=== PATIENT | female | born 1995 | race African-American/Black ===

== ENCOUNTER 2016-12-29 05:12 | Emergency (ER) | payer SELFPAY ==
[~2016-12-29] VITALS: Ht 170.2 cm; Wt 172.4 kg
[~2016-12-29 05:12] MED LIST: CIPR500T4 PO; ERYT1OIN6 OP; [UNRECOGNIZED DRUG - OTHER]
--- NOTE | 2016-12-29 05:37 | ED Back Pain ---
General Chief Complaint: Back Problems Stated Complaint: BACK PAIN Source of Information: Patient, Family Exam Limitations: No Limitations History of Present Illness Time Seen by Provider: 05:25 Initial Comments Patient presents to ER with her sister with chief complaint of 3-4 weeks progressively worsening back pain especially after she started her job at [employer] approximately a couple weeks ago. She states the pain is worse at the end of the day and she oftentimes goes home goes asleep and sleeps the whole day and wakes up still having pain in her back. She has no incontinence of bowel or bladder, saddle anesthesia, numbness tingling, radiation, weakness, falls, history of injury or trauma. She has used 400 mg of ibuprofen once sometimes twice a day marginal benefit. She has not seen her primary care physician about this yet. Allergies and Home Medications Allergies Coded Allergies: Penicillins (Verified Allergy, 08/12/11) Home Medications Ciprofloxacin HCl 500 Mg Tablet, 500 MG PO BID, #20 Ref 0 Prescribed by: SAMEERA SMITH on 10/15/15 1305 Cyclobenzaprine HCl 10 Mg Tablet, 10 MG PO BID PRN for SPASMS, #15 Ref 0 Prescribed by: EMELY WYLIE on 12/29/16 0538 Erythromycin Base 1 Gm Oint...g., 0 OP Q4H, #1 Ref 0 1/2 inch Prescribed by: SAMEERA SMITH on 10/15/15 1305 Constitutional: see HPI, No chills, No diaphoresis, No dizziness, No fever, No malaise Respiratory: No cough, No short of breath Cardiovascular: No chest pain, No syncope Gastrointestinal: No constipation, No diarrhea, No nausea, No vomiting Genitourinary: No discharge, No dysuria, No frequency Musculoskeletal: see HPI, back pain, No joint pain, muscle pain, muscle stiffness Skin: No pruritus, No rash Psychiatric/Neurological: Denies Headache, Denies Numbness, Denies Paresthesia , Denies Weakness Past Tsjdgeu-Tobjvb-Tzwomc Hx Patient Social History Alcohol Use: Denies Use Recreational Drug Use: No Smoking Status: Never a Smoker Recent Foreign Travel: No Contact w/Someone Who Travel: No Seasonal Allergies Seasonal Allergies: Yes Surgeries HX Surgeries: No Respiratory Hx Respiratory Disorders: No Cardiovascular Hx Cardiac Disorders: No Neurological Hx Neurological Disorders: No Gastrointestinal Hx Gastrointestinal Disorders: No HEENT HX ENT Disorders: No Family Medical History Significant Family History: No Pertinent Family Hx Physical Exam Vital Signs Vital Sign - Last 12Hours 12/29/16 05:26 Temp 97.4 Pulse 76 Resp 18 B/P (MAP) 122/98 Pulse Ox 100 Capillary Refill : General Appearance: No Apparent Distress, WD/WN HEENT: PERRL/EOMI, Pharynx Normal Neck: Full Range of Motion, Normal Inspection, Supple Cardiovascular: Regular Rate, Rhythm, No Edema Respiratory: Lungs Clear, Normal Breath Sounds Gastrointestinal: Non Tender, Soft Back: Normal Inspection, No Vertebral Tenderness Extremity: Normal Capillary Refill, No Pedal Edema Neurologic/Psychiatric: Alert, Oriented x3, No Motor/Sensory Deficits, No Abnormal Gait Skin: Normal Color, Warm/Dry Progress/Results/Core Measures Results/Orders Vital Signs/I&O Vital Sign - Last 12Hours 12/29/16 05:26 Temp 97.4 Pulse 76 Resp 18 B/P (MAP) 122/98 Pulse Ox 100 Departure Impression Impression: Primary Impression: Back pain Qualified Codes: M54.5 - Low back pain Disposition: 01 HOME, SELF-CARE Condition: Stable Departure-Patient Inst. Decision time for Depature: 05:33 [facility] Primary Care Physician Patient Instructions: Low Back Pain (DC) Add. Discharge Instructions: When possible try and rest your back. Wear the back brace on any days that it helps. Apply heat directly over the part of your back that hurts and if you do not have heat you can use creams such as icy hot or Aspercreme or Biofreeze. Looked up some exercises on strengthening your core such as sit ups, crutches, planks, pushups and start doing these with a goal of getting up to 30 minutes a day 5 days a week eventually. A weight loss of vision 5-10% of your body weight well resulted in dramatic improvement in your low back pain. Your pain should start getting better in 6-8 weeks. If you're having pain you should take ibuprofen 800 mg 3 times a day and Tylenol 1000 mg every 8 hours as needed. If this does not help and your pain is continuing to get worse or starts having new or worsening symptoms you should present to your primary care physician at [facility] as you may require extra help such as physical therapy that they can make referral to. You should return to the ER if you develops a high fever, incontinence, nausea or inability to walk. Twice a day you can use Flexeril one tablet by mouth if you're having back muscle spasms. Be cautious as this medicine will make you drowsy. All discharge instructions reviewed with patient and/or family. Voiced understanding. Scripts Cyclobenzaprine HCl (Cyclobenzaprine HCl) 10 Mg Tablet 10 MG PO BID Y for SPASMS, #15 TAB 0 Refills Prov: EMELY WYLIE 12/29/16 Copy Copies To 1: JUAN C GOMEZ TITUS J Dec 29, 2016 05:36
[2016-12-29] MEDS ORDERED: CYCL10TA9 PO (05:38)
[2016-12-29 05:41] VITALS: BP 122/98
== END 2016-12-29 05:41 | disposition home or self-care (01) ==
LOC: EDUNIT# 05:12 → ER 05:18
DX: M54.9 Dorsalgia, unspecified (principal)
CPT/HCPCS: 99281

== ENCOUNTER 2017-11-01 05:03 | Emergency (ER) | payer SELFPAY ==
[~2017-11-01] VITALS: Ht 170.2 cm; Wt 136.1 kg
[~2017-11-01 05:03] MED LIST changes: +CYCL10TA9 PO
[2017-11-01] MEDS ORDERED: KETOROLAC 30 MG/ML VIAL IVP ONE (05:15)
[2017-11-01] MEDS ORDERED: ONDANSETRON 4 MG/2 ML (SDV) Z0FRAN IVP ONE (05:15)
[2017-11-01] MEDS ORDERED: LACTATED RINGERS 1,000 ML IV ONE (05:15)
[2017-11-01 05:28] LABS: BASOPHILS % (AUTO) 0 % (0-10); EOSINOPHILS # (AUTO) 0.2 10^3/uL (0.0-0.3); EOSINOPHILS % (AUTO) 1 % (0-10); HEMATOCRIT 34 % (35-52); HEMOGLOBIN 11.6 G/DL (11.5-16.0); LYMPHOCYTES # (AUTO) 3.2 X 10^3 (1.0-4.0); LYMPHOCYTES % (AUTO) 22 % (12-44); MEAN CORPUSCULAR HEMOGLOBIN 29 PG (25-34); MEAN CORPUSCULAR HGB CONC 34 G/DL (32-36); MEAN CORPUSCULAR VOLUME 85 FL (80-99); MEAN PLATELET VOLUME 11.1 FL (7.4-10.4); MONOCYTES # (AUTO) 1.1 X 10^3 (0.0-1.0); MONOCYTES % (AUTO) 8 % (0-12); NEUTROPHILS # (AUTO) 9.9 X 10^3 (1.8-7.8); NEUTROPHILS % (AUTO) 69 % (42-75); PLATELET COUNT 252 10^3/uL (130-400); RED BLOOD COUNT 4.05 10^6/uL (4.35-5.85); RED CELL DISTRIBUTION WIDTH 12.8 % (10.0-14.5); WHITE BLOOD COUNT 14.5 10^3/uL (4.3-11.0)
--- NOTE | 2017-11-01 05:29 | ED Abdominal Pain ---
General Chief Complaint: Abdominal/GI Problems Stated Complaint: AB PAIN W VOMITING Source of Information: Patient, Family (sister) Exam Limitations: No Limitations (EMELY WYLIE) History of Present Illness Date Seen by Provider: Nov 01, 2017 Time Seen by Provider: 05:12 Initial Comments Patient presents to the ER by private conveyance with her sister sister and a chief complaint that she woke her sister up because she has been having nausea and vomiting tonight. She is having abdominal pain in the epigastric region that sharp and does not radiate anywhere. Her sister says that they ate a meal of chicken and broccoli and cheese with rice about 8 or 9:00 and then 2 hours later the patient was having abdominal pain and nausea and vomiting. She's had no fevers or chills but she is having some sweats. Her sister says she gets these bouts in the last for a day or 2 about every month or so for the past 10- 11 years. Sister used to think that they are associated with the patient's periods but they do not think that anymore. Patient does not drink or smoke but used MJ yesterday. Patient uses blood pressure medicines but nothing else. She does not use control. She has never had pancreatitis that she knows of. She still has her gallbladder intact and his never had this worked up outpatient. She says she does not have a primary care doctor but she does follow at [facility]. Mom says whenever this happens of a goes on for more than a few days they will come to the ER and get some medicines to make it feel better and it'll go away in about 2-3 days but they've never followed up outpatient to have this further worked up. Her periods have been sporadic for the past several years sometimes going up to 6 months between periods and then being very irregular and more recently there getting more irregular with 2-3 months in between and then a very large heavy. She has no known history of PCOS or thyroid disorder. (EMELY WYLIE) Allergies and Home Medications Allergies Coded Allergies: Penicillins (Verified Allergy, 08/12/11) Patient Home Medication List Home Medication List Reviewed: Yes (EMELY WYLIE) Review of Systems Constitutional: No chills; diaphoresis; No fever, No malaise EENTM: No Blurred Vision, No Double Vision Respiratory: Denies Cough, Denies Shortness of Air Cardiovascular: Denies Chest Pain, Denies Edema, Denies Irregular Heart Rate, Denies Lightheadedness Gastrointestinal: Denies Abdomen Distended; Abdominal Pain; Denies Constipated , Denies Diarrhea; Nausea; Denies Poor Appetite, Denies Poor Fluid Intake, Denies Rectal Bleeding; Vomiting Genitourinary: Denies Burning, Denies Discharge Musculoskeletal: No back pain, No joint pain Skin: No pruritus, No rash (EMELY WYLIE) Past Tbdqlfr-Lmgove-Qeampv Hx Patient Social History Alcohol Use: Denies Use Recreational Drug Use: Yes Drug of Choice: marijuana Smoking Status: Never a Smoker Recent Foreign Travel: No Contact w/Someone Who Travel: No (EMELY WYLIE) Seasonal Allergies Seasonal Allergies: Yes (EMELY WYLIE) Past Medical History Surgeries: No Respiratory: No Cardiac: No Neurological: No Gastrointestinal: No (EMELY WYLIE) Family Medical History No Pertinent Family Hx (EMELY WYLIE) Physical Exam Vital Signs Vital Signs - First Documented 11/01/17 05:09 Temp 95.8 Pulse 70 Resp 20 B/P (MAP) 195/157 (170) Pulse Ox 96 O2 Delivery Room Air (ALEXA COTE MD) Vital Signs Capillary Refill : (EMELY WYLIE) General Appearance: WD/WN, moderate distress HEENT: PERRL/EOMI, TMs normal, pharynx normal Respiratory: chest non-tender, lungs clear, no respiratory distress, no accessory muscle use Cardiovascular: normal peripheral pulses, regular rate, rhythm, no edema Peripheral Pulses: 2+ Radial Pulses (R), 2+ Radial Pulses (L) Gastrointestinal: normal bowel sounds, soft, tenderness (midepigastric without Wisdom's sign or pain over McBurney's point.), other (no psoas sign or other mesenteric signs) Extremities: normal range of motion, non-tender, no calf tenderness, normal capillary refill Neurologic/Psychiatric: alert, normal mood/affect, oriented x 3 Skin: normal color, warm/dry (EMELY WYLIE) Progress/Results/Core Measures Results/Orders Lab Results Laboratory Tests Test 11/01/17 05:12 11/01/17 05:20 Range/Units White Blood Count 14.5 H 4.3-11.0 10^3/uL Red Blood Count 4.05 L 4.35-5.85 10^6/uL Hemoglobin 11.6 11.5-16.0 G/DL Hematocrit 34 L 35-52 % Mean Corpuscular Volume 85 80-99 FL Mean Corpuscular Hemoglobin 29 25-34 PG Mean Corpuscular Hemoglobin Concent 34 32-36 G/DL Red Cell Distribution Width 12.8 10.0-14.5 % Platelet Count 252 130-400 10^3/uL Mean Platelet Volume 11.1 H 7.4-10.4 FL Neutrophils (%) (Auto) 69 42-75 % Lymphocytes (%) (Auto) 22 12-44 % Monocytes (%) (Auto) 8 0-12 % Eosinophils (%) (Auto) 1 0-10 % Basophils (%) (Auto) 0 0-10 % Neutrophils # (Auto) 9.9 H 1.8-7.8 X 10^3 Lymphocytes # (Auto) 3.2 1.0-4.0 X 10^3 Monocytes # (Auto) 1.1 H 0.0-1.0 X 10^3 Eosinophils # (Auto) 0.2 0.0-0.3 10^3/uL Basophils # (Auto) 0.0 0.0-0.1 10^3/uL Sodium Level 142 135-145 MMOL/L Potassium Level 3.3 L 3.6-5.0 MMOL/L Chloride Level 107 98-107 MMOL/L Carbon Dioxide Level 22 21-32 MMOL/L Anion Gap 13 5-14 MMOL/L Blood Urea Nitrogen 14 7-18 MG/DL Creatinine 0.80 0.60-1.30 MG/DL Estimat Glomerular Filtration Rate > 60 BUN/Creatinine Ratio 18 Glucose Level 136 H 70-105 MG/DL Calcium Level 9.9 8.5-10.1 MG/DL Magnesium Level 1.7 L 1.8-2.4 MG/DL Total Bilirubin 0.3 0.1-1.0 MG/DL Aspartate Amino Transf (AST/SGOT) 21 5-34 U/L Alanine Aminotransferase (ALT/SGPT) 22 0-55 U/L Alkaline Phosphatase 69 40-136 U/L Total Protein 8.1 6.4-8.2 GM/DL Albumin 4.5 3.2-4.5 GM/DL Lipase 30 8-78 U/L Urine Color YELLOW Urine Clarity CLEAR Urine pH 5 5-9 Urine Specific [place] 1.020 1.016-1.022 Urine Protein 1+ H NEGATIVE Urine Glucose (UA) NEGATIVE NEGATIVE Urine Ketones NEGATIVE NEGATIVE Urine Nitrite NEGATIVE NEGATIVE Urine Bilirubin NEGATIVE NEGATIVE Urine Urobilinogen NORMAL NORMAL MG/DL Urine Leukocyte Esterase 3+ H NEGATIVE Urine RBC (Auto) NEGATIVE NEGATIVE Urine RBC NONE /HPF Urine WBC 0-2 /HPF Urine Squamous Epithelial Cells 10-25 H /HPF Urine Crystals NONE /LPF Urine Bacteria FEW H /HPF Urine Casts NONE /LPF Urine Mucus SMALL H /LPF Urine Culture Indicated NO Urine Opiates Screen NEGATIVE NEGATIVE Urine Oxycodone Screen NEGATIVE NEGATIVE Urine Methadone Screen NEGATIVE NEGATIVE Urine Propoxyphene Screen NEGATIVE NEGATIVE Urine Barbiturates Screen NEGATIVE NEGATIVE Ur Tricyclic Antidepressants Screen NEGATIVE NEGATIVE Urine Phencyclidine Screen NEGATIVE NEGATIVE Urine Amphetamines Screen NEGATIVE NEGATIVE Urine Methamphetamines Screen NEGATIVE NEGATIVE Urine Benzodiazepines Screen NEGATIVE NEGATIVE Urine Cocaine Screen NEGATIVE NEGATIVE Urine Cannabinoids Screen POSITIVE H NEGATIVE (ALEXA COTE MD) My Orders Orders - ALEXA COTE MD Gallbladder [id number] (11/01/17 07:00) (ALEXA COTE MD) Medications Given in ED Current Medications Medications Dose Ordered Sig/Olivier Route Start Time Stop Time Status Last Admin Dose Admin Ketorolac Tromethamine 15 mg ONCE ONCE IVP 11/01/17 05:15 11/01/17 05:21 DC 11/01/17 05:29 15 MG Lactated Ringer's 1,000 ml @ 0 mls/hr Q0M ONCE IV 11/01/17 05:15 11/01/17 05:21 DC 11/01/17 05:29 1,000 MLS/HR Ondansetron HCl 4 mg ONCE ONCE IVP 11/01/17 05:15 11/01/17 05:21 DC 11/01/17 05:30 4 MG (ALEXA COTE MD) Vital Signs/I&O 11/01/17 05:09 Temp 95.8 Pulse 70 Resp 20 B/P (MAP) 195/157 (170) Pulse Ox 96 O2 Delivery Room Air (ALEXA COTE MD) Progress Progress Note : Time: 05:34 Progress Note Her story sounds like biliary colic. Due to her obesity it is difficult to elicit any Wisdom sign. There is also some concern given her habitus, acanthosis nigricans and irregular periods PCO S is high on the differential. Not to ignore the possibility of PUD, gastritis, pancreatitis, etc. we will obtain CT scan of the abdomen before trialing a GI cocktail. (EMELY WYLIE) Progress Note : Time: 07:06 Progress Note Patient's laboratory and radiographic evaluation demonstrated an elongated gallbladder but no evidence of stones. The patient demonstrated leukocytosis. Patient is sleeping in the emergency department following administration of medications. I discussed findings with patient and her mother. They understand that an outpatient ultrasound of the gallbladder tomorrow as going to be a superior study to one done acutely today. They would like to rest at home with nausea and pain medications and return for an outpatient ultrasound in the morning with follow-up with [facility]. They're invited them to return to emergency department if any further problems or questions. 8:20 am An ultrasound of the gallbladder was performed which demonstrated acute cholecystitis with a stone in the neck. The patient is comfortable at this time. I will send her with Zofran and hydrocodone should her nausea her pain recur. She will follow up with [facility] tomorrow in anticipation of scheduling for a cholecystectomy. (ALEXA COTE MD) Diagnostic Imaging Diagonstic Imaging: CT (with contrast) Plain Films/CT/US/NM/MRI: abdomen, pelvis Reviewed: Reviewed by Me (EMELY WYLIE) Departure Impression Primary Impression: Nausea and vomiting Qualified Codes: R11.2 - Nausea with vomiting, unspecified Additional Impression: Abdominal pain Qualified Codes: R10.11 - Right upper quadrant pain Disposition: 01 HOME, SELF-CARE Condition: Improved Departure-Patient Inst. Decision time for Depature: 07:09 (ALEXA COTE MD) Referrals: [facility] (PCP/Family) Primary Care Physician Patient Instructions: Acute Abdomen (Belly Pain), Adult (DC) Add. Discharge Instructions: Ultrasound as scheduled. Close follow-up with the health after the ultrasound. Vicodin for pain. Zofran for nausea. Return if any problems. All discharge instructions reviewed with patient and/or family. Voiced understanding. EMELY WYLIE Nov 01, 2017 05:28 ALEXA COTE MD Nov 01, 2017 07:12
[2017-11-01 05:33] LABS: BILIRUBIN,URINE NEGATIVE (NEGATIVE); CLARITY,URINE CLEAR; COLOR,URINE YELLOW; GLUCOSE, URINE (UA) NEGATIVE (NEGATIVE); KETONES,URINE NEGATIVE (NEGATIVE); LEUKOCYTE ESTERASE ,URINE 3+ (NEGATIVE); NITRITE,URINE NEGATIVE (NEGATIVE); PH,URINE 5 (5-9); PROTEIN,URINE 1+ (NEGATIVE); UROBILINOGEN,URINE NORMAL (NORMAL)
[2017-11-01 05:47] LABS: BACTERIA,URINE FEW /HPF; WBC,URINE 0-2 /HPF
[2017-11-01 05:47] LABS: ALANINE AMINOTRANSFERASE 22 U/L (0-55); ALBUMIN 4.5 GM/DL (3.2-4.5); ALKALINE PHOSPHATASE 69 U/L (40-136); BILIRUBIN,TOTAL 0.3 MG/DL (0.1-1.0); BUN/CREATININE RATIO 18; CALCIUM 9.9 MG/DL (8.5-10.1); CARBON DIOXIDE 22 MMOL/L (21-32); CHLORIDE 107 MMOL/L (98-107); GFR ESTIMATED > 60; GLUCOSE 136 MG/DL (70-105); LIPASE 30 U/L (8-78); MAGNESIUM 1.7 MG/DL (1.8-2.4); POTASSIUM 3.3 MMOL/L (3.6-5.0); SODIUM 142 MMOL/L (135-145); TOTAL PROTEIN 8.1 GM/DL (6.4-8.2)
[2017-11-01 05:49] LABS: AMPHETAMINE SCREEN, URINE NEGATIVE (NEGATIVE); BARBITURATE SCREEN URINE NEGATIVE (NEGATIVE); BENZODIAZEPINES SCREEN URINE NEGATIVE (NEGATIVE); CANNABINOID SCREEN, URINE POSITIVE (NEGATIVE); COCAINE SCREEN URINE NEGATIVE (NEGATIVE); METHADONE STAT NEGATIVE (NEGATIVE); METHAMPHETAMINE SCREEN URINE S NEGATIVE (NEGATIVE); OPIATE SCREEN URINE NEGATIVE (NEGATIVE); OXYCODONE STAT NEGATIVE (NEGATIVE); PROPOXYPHENE STAT NEGATIVE (NEGATIVE); TRICYCLIC ANTIDEPRESSANTS SCRE NEGATIVE (NEGATIVE)
--- NOTE | 2017-11-01 06:52 | Diagnostic Imaging Report ---
PROCEDURE: CT abdomen and pelvis with contrast. TECHNIQUE: Multiple contiguous axial images were obtained through the abdomen and pelvis after administration of intravenous contrast. Indication: Generalized abdominal pain with nausea and vomiting. Comparison: None. Discussion: The lung bases are well-aerated. Normal heart size. No pleural or pericardial fluid. Suspect fatty infiltration of the liver. Liver is normal in size. The gallbladder is fluid-filled and markedly elongated though does not appear to be overtly dilated, this is of doubtful clinical significance. The pancreas, stomach, spleen, and adrenal glands are unremarkable. No renal stone or hydronephrosis. The uterus and urinary bladder are unremarkable. Normal follicular activity is present within the left ovary. The large and small bowel loops appear within normal limits. No obstruction, pneumatosis, pneumoperitoneum. No osseous abnormality. No ascites or pathologically enlarged lymph nodes identified. Aorta is normal in caliber. Impression: 1. No gallstone identified. The gallbladder is rather elongated though does not appear to be overtly dilated. There are no inflammatory changes identified. Findings are likely incidental. 2. Otherwise no acute abnormality identified within either the abdomen or pelvis. Suspect early fatty infiltration of the liver. The appendix is normal. Dictated by: Dictated on workstation # [id number]
[2017-11-01 08:25] VITALS: BP 179/89
--- NOTE | 2017-11-01 09:07 | Diagnostic Imaging Report ---
EXAM: RIGHT UPPER QUADRANT ULTRASOUND DATE: 11/01/2017. COMPARISON: CT abdomen and pelvis 11/01/2017. INDICATION: 22-year-old female, abdominal pain. PROCEDURE: Two-dimensional grayscale and color doppler ultrasound examination of the right upper quadrant is performed. FINDINGS: Liver: The liver is of normal size and echotexture without solid or cystic masses. Bile ducts and gallbladder: There are shadowing gallstones including a gallstone in the region of the gallbladder neck. The gallbladder is very mildly distended. There is no pericholecystic fluid. The gallbladder wall measures 0.5 cm. There is no intrahepatic or extrahepatic biliary ductal dilation. The common bile duct measures 0.5 cm. There is no reported sonographic Wisdom's sign. Right kidney: Unremarkable right kidney. No hydronephrosis. The right kidney measures 11.7 cm x 5.7 cm x 5.7 cm. Pancreas: Normal visualized pancreas. IMPRESSION: 1. Cholelithiasis without convincing evidence of acute cholecystitis. If there is persistent clinical concern, nuclear medicine HIDA scan may be of benefit. 2. No biliary ductal dilation. 3. Additional right upper quadrant ultrasound evaluation is unremarkable. Dictated by: Dictated on workstation # [id number]
--- OUTSIDE RECORDS SUMMARY | 2017-11-01 14:14 | XMS REPORT | Continuity of Care Document ---
Author Author [facility] Organization [facility] Address Unknown Phone Unavailable Allergies Active Description Code Type Severity Reaction Onset Reported/Identified Relationship to Patient Clinical Status Yes Penicillins [id number] Drug Allergy Unknown N/A 08/12/2011 Medications There is no data. Problems Date Dx Coded Attending Type Code Diagnosis Diagnosed By 08/12/2011 Ot 305.90 DRUG ABUSE NEC-UNSPEC 08/18/2011 Ot 719.47 JOINT PAIN- ANKLE 08/18/2011 Ot 729.5 PAIN IN LIMB 08/18/2011 Ot V57.1 PHYSICAL THERAPY NEC 08/22/2011 Ot 719.47 JOINT PAIN- ANKLE 08/22/2011 Ot V57.1 PHYSICAL THERAPY NEC 10/15/2015 SAMEERA MALONEY Ot H10.33 UNSPECIFIED ACUTE CONJUNCTIVITIS, BILATE 10/15/2015 SAMEERA MALONEY Ot J06.9 ACUTE UPPER RESPIRATORY INFECTION, UNSPE 10/15/2015 SAMEERA MALONEY Ot R03.0 ELEVATED BLOOD-PRESSURE READING, W/O BERYL 10/18/2015 SAMEERA MALONEY Ot H10.33 UNSPECIFIED ACUTE CONJUNCTIVITIS, BILATE 10/18/2015 SAMEERA MALONEY Ot J06.9 ACUTE UPPER RESPIRATORY INFECTION, UNSPE 10/18/2015 SAMEERA MALONEY Ot R03.0 ELEVATED BLOOD-PRESSURE READING, W/O BERYL 10/19/2015 SAMEERA MALONEY Ot H10.33 UNSPECIFIED ACUTE CONJUNCTIVITIS, BILATE 10/19/2015 SAMEERA MALONEY Ot J06.9 ACUTE UPPER RESPIRATORY INFECTION, UNSPE 10/19/2015 SAMEERA MALONEY Ot R03.0 ELEVATED BLOOD-PRESSURE READING, W/O BERYL Procedures There is no data. Results There is no data. Encounters ACCT No. Visit Date/Time Discharge Status Pt. Type Provider Facility Loc./Unit Complaint [id number] 12/29/2016 05:18:00 12/29/2016 05:41:00 DIS Emergency INESSA SOLIS, EMELY Curry [facility] ER BACK PAIN [id number] 10/15/2015 12:21:00 10/15/2015 13:18:00 DIS Emergency SAMEERA MALONEY [facility] ER SORE THROAT CONGESTION [id number] 08/18/2011 15:12:00 Document Registration [id number] 08/14/2011 15:19:00 Document Registration [id number] 08/12/2011 07:47:00 Document Registration
== END 2017-11-01 08:25 | disposition home or self-care (01) ==
LOC: EDUNIT# 05:03 → ER 05:05
DX: R11.2 Nausea with vomiting, unspecified (principal); R10.13 Epigastric pain; F12.90 Cannabis use, unspecified, uncomplicated; E66.9 Obesity, unspecified; Z88.0 Allergy status to penicillin; Z68.42 Body mass index [BMI] 45.0-49.9, adult
CPT/HCPCS: 36415; 74177; 76705; 80053; 80306; 81000; 83690; 83735; 84703; 85025; 96374; 96375

== ENCOUNTER 2020-11-20 13:36 | Emergency (ER) | payer SELFPAY ==
[~2020-11-20] VITALS: Ht 170 cm; Wt 137.5 kg
[~2020-11-20 13:36] MED LIST changes: -CIPR500T4 PO; +CIPR500T5 PO
--- NOTE | 2020-11-20 13:48 | ED Respiratory ---
General Chief Complaint: Respiratory Problems Stated Complaint: SOB; RT ARM PAIN Source: patient Exam Limitations: no limitations History of Present Illness Date Seen by Provider: Nov 20, 2020 Time Seen by Provider: 13:47 Initial Comments 25-year-old female presents with shortness of air, onset today while doing some work. Denies previous occurrence of similar symptoms. Denies recent illness, fever chills or cough. Denies chest tightness or wheezing. Past medical history significant hypertension. She does smoke cigarettes. SOA is worse with exertion. Allergies and Home Medications Allergies Coded Allergies: Penicillins (Verified Allergy, 08/12/11) Patient Home Medication List Home Medication List Reviewed: Yes Review of Systems Review of Systems Constitutional: No chills, No dizziness, No fever, No malaise, No weakness EENTM: no symptoms reported Respiratory: No cough; dyspnea on exertion, short of breath; No stridor, No wheezing Cardiovascular: No chest pain, No edema, No palpitations, No syncope Gastrointestinal: No abdominal pain, No loss of appetite, No nausea, No vomiting Musculoskeletal: No back pain, No joint pain Skin: No change in color, No rash Psychiatric/Neurological: Denies Headache, Denies Numbness, Denies Paresthesia, Denies Tingling, Denies Tremors, Denies Weakness Past Cymsgxb-Iwqtcw-Tbhses Hx Patient Social History Tobacco Use?: Yes Immunizations Up To Date Tetanus Booster (TDap): Unknown PED Vaccines UTD: Yes Seasonal Allergies Seasonal Allergies: Yes Past Medical History Surgeries: No Respiratory: No Cardiac: No Neurological: No Gastrointestinal: No Family Medical History No Pertinent Family Hx Physical Exam Vital Signs - First Documented 11/20/20 13:40 Temp 36.5 Pulse 97 Resp 20 B/P (MAP) 153/93 (113) Pulse Ox 99 O2 Delivery Room Air Capillary Refill : Height: 5'7.00" Weight: 300lbs. oz. 136.099322ny; BMI Method:Stated General Appearance: WD/WN, no apparent distress, obese Eyes: Bilateral Eye PERRL, Bilateral Eye EOMI HEENT: PERRL/EOMI, normal ENT inspection Neck: non-tender, supple Respiratory: chest non-tender, lungs clear, normal breath sounds, no respiratory distress, no accessory muscle use Cardiovascular: regular rate, rhythm, no edema, no JVD Gastrointestinal: normal bowel sounds, non tender, soft Extremities: normal range of motion, non-tender, normal inspection Neurologic/Psychiatric: no motor/sensory deficits, alert, normal mood/affect, oriented x 3 Skin: normal color, warm/dry Progress/Results/Core Measures Suspected Sepsis SIRS Temperature: Pulse: Respiratory Rate: Laboratory Tests 11/20/20 14:20: White Blood Count 8.9 Blood Pressure / Mean: Laboratory Tests 11/20/20 14:20: Creatinine 0.92, Platelet Count 222, Total Bilirubin 0.3 Results/Orders Lab Results Laboratory Tests Test 11/20/20 14:20 Range/Units White Blood Count 8.9 4.3-11.0 10^3/uL Red Blood Count 4.06 L 4.35-5.85 10^6/uL Hemoglobin 11.5 11.5-16.0 G/DL Hematocrit 35 35-52 % Mean Corpuscular Volume 85 80-99 FL Mean Corpuscular Hemoglobin 28 25-34 PG Mean Corpuscular Hemoglobin Concent 33 32-36 G/DL Red Cell Distribution Width 12.7 10.0-14.5 % Platelet Count 222 130-400 10^3/uL Mean Platelet Volume 11.1 H 7.4-10.4 FL Immature Granulocyte % (Auto) 0 % Neutrophils (%) (Auto) 58 42-75 % Lymphocytes (%) (Auto) 32 12-44 % Monocytes (%) (Auto) 7 0-12 % Eosinophils (%) (Auto) 2 0-10 % Basophils (%) (Auto) 0 0-10 % Neutrophils # (Auto) 5.2 1.8-7.8 X 10^3 Lymphocytes # (Auto) 2.8 1.0-4.0 X 10^3 Monocytes # (Auto) 0.6 0.0-1.0 X 10^3 Eosinophils # (Auto) 0.2 0.0-0.3 10^3/uL Basophils # (Auto) 0.0 0.0-0.1 10^3/uL Immature Granulocyte # (Auto) 0.0 0.0-0.1 10^3/uL D-Dimer 0.46 0.00-0.49 UG/ML Sodium Level 140 135-145 MMOL/L Potassium Level 3.5 L 3.6-5.0 MMOL/L Chloride Level 106 98-107 MMOL/L Carbon Dioxide Level 24 21-32 MMOL/L Anion Gap 10 5-14 MMOL/L Blood Urea Nitrogen 15 7-18 MG/DL Creatinine 0.92 0.60-1.30 MG/DL Estimat Glomerular Filtration Rate > 60 BUN/Creatinine Ratio 16 Glucose Level 98 70-105 MG/DL Calcium Level 9.9 8.5-10.1 MG/DL Corrected Calcium 8.5-10.1 MG/DL Total Bilirubin 0.3 0.1-1.0 MG/DL Aspartate Amino Transf (AST/SGOT) 24 5-34 U/L Alanine Aminotransferase (ALT/SGPT) 22 0-55 U/L Alkaline Phosphatase 62 40-136 U/L Troponin I < 0.30 <0.30 NG/ML Total Protein 7.7 6.4-8.2 GM/DL Albumin 4.6 H 3.2-4.5 GM/DL My Orders Orders - ROVENSTINEOSMEL DO Chest 1 View Ap/Pa Only (11/20/20 13:48) Ekg Tracing (11/20/20 13:48) Cbc With Automated Diff (11/20/20 14:11) Comprehensive Metabolic Panel (11/20/20 14:11) Fibrin Degradation Products (11/20/20 14:11) Troponin I Fs (11/20/20 14:11) Vital Signs/I&O 11/20/20 13:40 Temp 36.5 Pulse 97 Resp 20 B/P (MAP) 153/93 (113) Pulse Ox 99 O2 Delivery Room Air Capillary Refill : ECG Initial ECG Impression Date: Nov 20, 2020 Initial ECG Impression Time: 14:00 Initial ECG Rate: 84 Initial ECG Rhythm: Normal Sinus Initial ECG Intervals: Normal Initial ECG Impression: Normal Initial ECG Comparisson: No Previous ECG Available Comment III & aVF - T-wave inversion Diagnostic Imaging Diagonstic Imaging: Xray Plain Films/CT/US/NM/MRI: chest Comments EXAMINATION: PA chest at 1:55 PM. INDICATION: Shortness of breath. COMPARISON: None. FINDINGS: The heart size is within normal limits. The lungs are clear. There is no evidence for failure, pneumonia or for a pleural effusion. The mediastinum is not widened. The osseous structures are intact. IMPRESSION: There is no evidence for active disease. Dictated on workstation # [id number] Dict: 11/20/20 135 Trans: 11/20/20 1400 [id number] Interpreted by: ANTHONY ORTEGA MD Electronically signed by: Departure Impression Primary Impression: Dyspnea Qualified Codes: R06.00 - Dyspnea, unspecified Disposition: 01 HOME, SELF-CARE Condition: Improved Departure-Patient Inst. Decision time for Depature: 14:58 Referrals: MANDY ROD MD (PCP/Family) Primary Care Physician Patient Instructions: Shortness of Breath (Dyspnea) Add. Discharge Instructions: see Dr Rod in 5 to 7 days. Return to the ER if you have onset of shortness of air, not relieved with rest. You are encouraged to stop smoking All discharge instructions reviewed with patient and/or family. Voiced understanding. Work/School Note: Work Release Form Date Seen in the Emergency Department: Nov 20, 2020 Return to Work: Nov 21, 2020 Restrictions: No Restrictions OSMEL ESPINO DO Nov 20, 2020 13:47
--- NOTE | 2020-11-20 14:00 | Diagnostic Imaging Report ---
EXAMINATION: PA chest at 1:55 PM. INDICATION: Shortness of breath. COMPARISON: None. FINDINGS: The heart size is within normal limits. The lungs are clear. There is no evidence for failure, pneumonia or for a pleural effusion. The mediastinum is not widened. The osseous structures are intact. IMPRESSION: There is no evidence for active disease. Dictated by: Dictated on workstation # [id number]
[2020-11-20 14:28] LABS: HEMATOCRIT 35 % (35-52); HEMOGLOBIN 11.5 G/DL (11.5-16.0); MEAN CORPUSCULAR HEMOGLOBIN 28 PG (25-34); MEAN CORPUSCULAR HGB CONC 33 G/DL (32-36); MEAN CORPUSCULAR VOLUME 85 FL (80-99); WHITE BLOOD COUNT 8.9 10^3/uL (4.3-11.0)
[2020-11-20 14:29] LABS: MEAN PLATELET VOLUME 11.1 FL (7.4-10.4); PLATELET COUNT 222 10^3/uL (130-400)
[2020-11-20 14:30] LABS: BASOPHILS % (AUTO) 0 % (0-10); EOSINOPHILS # (AUTO) 0.2 10^3/uL (0.0-0.3); EOSINOPHILS % (AUTO) 2 % (0-10); LYMPHOCYTES # (AUTO) 2.8 X 10^3 (1.0-4.0); LYMPHOCYTES % (AUTO) 32 % (12-44); MONOCYTES # (AUTO) 0.6 X 10^3 (0.0-1.0); MONOCYTES % (AUTO) 7 % (0-12); NEUTROPHILS # (AUTO) 5.2 X 10^3 (1.8-7.8); NEUTROPHILS % (AUTO) 58 % (42-75)
[2020-11-20 14:48] LABS: POTASSIUM 3.5 MMOL/L (3.6-5.0); SODIUM 140 MMOL/L (135-145)
[2020-11-20 14:49] LABS: ALANINE AMINOTRANSFERASE 22 U/L (0-55); ALBUMIN 4.6 GM/DL (3.2-4.5); ALKALINE PHOSPHATASE 62 U/L (40-136); BILIRUBIN,TOTAL 0.3 MG/DL (0.1-1.0); BUN/CREATININE RATIO 16; CALCIUM 9.9 MG/DL (8.5-10.1); CARBON DIOXIDE 24 MMOL/L (21-32); CHLORIDE 106 MMOL/L (98-107); CREATININE SERUM 0.92 MG/DL (0.60-1.30); GFR ESTIMATED > 60; GLUCOSE 98 MG/DL (70-105); TOTAL PROTEIN 7.7 GM/DL (6.4-8.2)
[2020-11-20 15:00] VITALS: BP 155/87
== END 2020-11-20 15:00 | disposition home or self-care (01) ==
LOC: EDUNIT# 13:36 → ER FS 13:38
DX: R06.00 Dyspnea, unspecified (principal); I10 Essential (primary) hypertension; E66.9 Obesity, unspecified; F17.210 Nicotine dependence, cigarettes, uncomplicated; Z68.45 Body mass index [BMI] 70 or greater, adult
CPT/HCPCS: 36415; 71045; 80053; 84484; 85025; 85379; 93005

== ENCOUNTER 2020-12-12 12:00 | Emergency (ER) | payer SELFPAY ==
[~2020-12-12] VITALS: Ht 170.2 cm; Wt 172.4 kg
[2020-12-12 12:37] LABS: HEMATOCRIT 37 % (35-52); HEMOGLOBIN 11.9 G/DL (11.5-16.0); MEAN CORPUSCULAR HEMOGLOBIN 28 PG (25-34); MEAN CORPUSCULAR VOLUME 86 FL (80-99); WHITE BLOOD COUNT 7.2 10^3/uL (4.3-11.0)
[2020-12-12 12:38] LABS: BASOPHILS % (AUTO) 0 % (0-10); EOSINOPHILS # (AUTO) 0.2 10^3/uL (0.0-0.3); EOSINOPHILS % (AUTO) 3 % (0-10); LYMPHOCYTES # (AUTO) 2.7 X 10^3 (1.0-4.0); LYMPHOCYTES % (AUTO) 37 % (12-44); MEAN CORPUSCULAR HGB CONC 33 G/DL (32-36); MEAN PLATELET VOLUME 11.1 FL (7.4-10.4); MONOCYTES # (AUTO) 0.6 X 10^3 (0.0-1.0); MONOCYTES % (AUTO) 8 % (0-12); NEUTROPHILS # (AUTO) 3.7 X 10^3 (1.8-7.8); NEUTROPHILS % (AUTO) 52 % (42-75); PLATELET COUNT 263 10^3/uL (130-400)
[2020-12-12] MEDS ORDERED: NS IV 1000 ML 1,000 ML IV STA (12:38)
[2020-12-12] MEDS ORDERED: PANTOPRAZOLE 40 MG (PROTONIX) VIAL IV STA (12:38)
[2020-12-12] MEDS ORDERED: KETOROLAC 30 MG/ML VIAL IVP STA (12:38)
[2020-12-12 12:40] LABS: BILIRUBIN,URINE NEGATIVE (NEGATIVE); CLARITY,URINE SL CLOUDY; COLOR,URINE YELLOW; GLUCOSE, URINE (UA) NEGATIVE (NEGATIVE); KETONES,URINE NEGATIVE (NEGATIVE); LEUKOCYTE ESTERASE ,URINE 1+ (NEGATIVE); NITRITE,URINE NEGATIVE (NEGATIVE); PROTEIN,URINE NEGATIVE (NEGATIVE)
[2020-12-12 12:45] LABS: BACTERIA,URINE FEW /HPF; SQUAMOUS EPITHELIAL CELL,UR 0-2 /HPF
[2020-12-12 12:52] LABS: ALANINE AMINOTRANSFERASE 32 U/L (0-55); ALKALINE PHOSPHATASE 59 U/L (40-136); BILIRUBIN,TOTAL 0.4 MG/DL (0.1-1.0); BUN/CREATININE RATIO 18; CALCIUM 9.9 MG/DL (8.5-10.1); CARBON DIOXIDE 23 MMOL/L (21-32); CHLORIDE 103 MMOL/L (98-107); GFR ESTIMATED 73; GLUCOSE 88 MG/DL (70-105); POTASSIUM 4.3 MMOL/L (3.6-5.0); SODIUM 140 MMOL/L (135-145); TOTAL PROTEIN 8.7 GM/DL (6.4-8.2)
[2020-12-12 12:53] LABS: ALBUMIN 4.9 GM/DL (3.2-4.5)
[2020-12-12] MEDS ORDERED: ONDANSETRON 4 MG/2 ML (SDV) Z0FRAN ONE (12:55)
[2020-12-12] MEDS ORDERED: ONDANSETRON 4 MG/2 ML (SDV) Z0FRAN IVP STA (12:55)
--- NOTE | 2020-12-12 13:13 | ED General ---
General Chief Complaint: Abdominal/GI Problems Stated Complaint: ABD PAIN Source of Information: Patient History of Present Illness Date Seen by Provider: Dec 12, 2020 Time Seen by Provider: 12:04 Initial Comments 25-year-old female presenting with upper abdominal pain, nausea, vomiting. This is been since last night after eating fried fish with her family. No other family members that had issues. She denies any diarrhea. She states this feels similar to when she has had gallbladder issues several years ago. She never had seen anyone about having her gallbladder taken out although they told her she had gallstones. She denies any fever or chills. She has had nothing to eat or drink since the fried fish last night. Timing/Duration: 12-24 Hours Severity: Severe Associated Systoms: No Chest Pain, No Cough, No Diaphoresis, No Fever/Chills, No Headaches, No Loss of Appetite, No Malaise; Nausea/Vomiting; No Rash, No Se izure, No Shortness of Air, No Syncope, No Weakness Allergies and Home Medications Allergies Coded Allergies: Penicillins (Verified Allergy, Unknown, 12/12/20) Home Medications Hydrocodone/Acetaminophen 1 Each Tablet, 1 TAB PO Q6H PRN for PAIN-SEVERE (8-10) Prescribed by: HERMES MIJARES on 12/12/20 1449 Naproxen 500 Mg Tablet, 500 MG PO Q12H PRN for pain Prescribed by: HERMES MIJARES on 12/12/20 1448 Ondansetron 4 Mg Tab.rapdis, 4 MG PO Q6H PRN for NAUSEA/VOMITING Prescribed by: HERMES MIJARES on 12/12/20 1448 Patient Home Medication List Home Medication List Reviewed: Yes Review of Systems Review of Systems Constitutional: see HPI EENTM: no symptoms reported Respiratory: no symptoms reported Cardiovascular: no symptoms reported Gastrointestinal: see HPI Genitourinary: no symptoms reported Musculoskeletal: no symptoms reported Skin: no symptoms reported Psychiatric/Neurological: No Symptoms Reported Past Ohsdzuq-Tltuqt-Qxjlba Hx Immunizations Up To Date Tetanus Booster (TDap): Unknown PED Vaccines UTD: Yes Seasonal Allergies Seasonal Allergies: Yes Past Medical History Surgeries: No Respiratory: No Cardiac: No Neurological: No Gastrointestinal: No Family Medical History No Pertinent Family Hx Physical Exam Vital Signs Vital Signs - First Documented 12/12/20 12:04 Temp 36.1 Pulse 67 Resp 20 B/P (MAP) 124/100 (108) Pulse Ox 100 O2 Delivery Room Air Capillary Refill : Height, Weight, BMI Height: 5'7.00" Weight: 300lbs. oz. 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 Skin: Normal Color, Warm/Dry Progress/Results/Core Measures Suspected Sepsis SIRS Temperature: Pulse: Respiratory Rate: Laboratory Tests 12/12/20 12:22: White Blood Count 7.2 Blood Pressure / Mean: Laboratory Tests 12/12/20 12:22: Creatinine 1.10, Platelet Count 263, Total Bilirubin 0.4 Results/Orders Lab Results Laboratory Tests Test 12/12/20 12:22 Range/Units White Blood Count 7.2 4.3-11.0 10^3/uL Red Blood Count 4.24 L 4.35-5.85 10^6/uL Hemoglobin 11.9 11.5-16.0 G/DL Hematocrit 37 35-52 % Mean Corpuscular Volume 86 80-99 FL Mean Corpuscular Hemoglobin 28 25-34 PG Mean Corpuscular Hemoglobin Concent 33 32-36 G/DL Red Cell Distribution Width 12.9 10.0-14.5 % Platelet Count 263 130-400 10^3/uL Mean Platelet Volume 11.1 H 7.4-10.4 FL Immature Granulocyte % (Auto) 0 % Neutrophils (%) (Auto) 52 42-75 % Lymphocytes (%) (Auto) 37 12-44 % Monocytes (%) (Auto) 8 0-12 % Eosinophils (%) (Auto) 3 0-10 % Basophils (%) (Auto) 0 0-10 % Neutrophils # (Auto) 3.7 1.8-7.8 X 10^3 Lymphocytes # (Auto) 2.7 1.0-4.0 X 10^3 Monocytes # (Auto) 0.6 0.0-1.0 X 10^3 Eosinophils # (Auto) 0.2 0.0-0.3 10^3/uL Basophils # (Auto) 0.0 0.0-0.1 10^3/uL Immature Granulocyte # (Auto) 0.0 0.0-0.1 10^3/uL Urine Color YELLOW Urine Clarity SL CLOUDY Urine pH 6.0 5-9 Urine Specific [place] >=1.030 1.016-1.022 Urine Protein NEGATIVE NEGATIVE Urine Glucose (UA) NEGATIVE NEGATIVE Urine Ketones NEGATIVE NEGATIVE Urine Nitrite NEGATIVE NEGATIVE Urine Bilirubin NEGATIVE NEGATIVE Urine Urobilinogen 0.2 < = 1.0 MG/DL Urine Leukocyte Esterase 1+ H NEGATIVE Urine RBC (Auto) 2+ H NEGATIVE Urine RBC 5-10 H /HPF Urine WBC 2-5 /HPF Urine Squamous Epithelial Cells 0-2 /HPF Urine Crystals NONE /LPF Urine Bacteria FEW H /HPF Urine Casts NONE /LPF Urine Mucus SMALL H /LPF Urine Culture Indicated YES Sodium Level 140 135-145 MMOL/L Potassium Level 4.3 3.6-5.0 MMOL/L Chloride Level 103 98-107 MMOL/L Carbon Dioxide Level 23 21-32 MMOL/L Anion Gap 14 5-14 MMOL/L Blood Urea Nitrogen 20 H 7-18 MG/DL Creatinine 1.10 0.60-1.30 MG/DL Estimat Glomerular Filtration Rate 73 BUN/Creatinine Ratio 18 Glucose Level 88 70-105 MG/DL Calcium Level 9.9 8.5-10.1 MG/DL Corrected Calcium 8.5-10.1 MG/DL Total Bilirubin 0.4 0.1-1.0 MG/DL Aspartate Amino Transf (AST/SGOT) 26 5-34 U/L Alanine Aminotransferase (ALT/SGPT) 32 0-55 U/L Alkaline Phosphatase 59 40-136 U/L Total Protein 8.7 H 6.4-8.2 GM/DL Albumin 4.9 H 3.2-4.5 GM/DL Lipase 18 8-78 U/L My Orders Orders - HERMES MIJARES MD Comprehensive Metabolic Panel (12/12/20 12:11) Lipase (12/12/20 12:11) Ua Culture If Indicated (12/12/20 12:11) Ed Iv/Invasive Line Start (12/12/20 12:11) Cbc With Automated Diff (12/12/20 12:11) Urine Bedside (12/12/20 12:14) Ns Iv 1000 Ml (Sodium Chloride 0.9%) (12/12/20 12:38) Ketorolac Injection (Toradol Injection) (12/12/20 12:38) Pantoprazole Injection (Protonix Injecti (12/12/20 12:38) Urine Culture (12/12/20 12:22) Ondansetron Injection (Zofran Injectio (12/12/20 12:55) Ct Abdomen/Pelvis W (12/12/20 12:55) Ondansetron Injection (Zofran Injectio (12/12/20 12:55) Iohexol Injection (Omnipaque 350 Mg/Ml 1 (12/12/20 13:30) Received Contrast (Hold Metformin- Contr (12/12/20 13:30) Sodium Chloride Flush (Catheter Flush Sy (12/12/20 13:30) Ns (Ivpb) (Sodium Chloride 0.9% Ivpb Bag (12/12/20 13:30) Medications Given in ED Current Medications Medications Dose Ordered Sig/Olivier Route Start Time Stop Time Status Last Admin Dose Admin Iohexol 100 ml ONCE ONCE IV 12/12/20 13:30 12/12/20 13:31 DC 12/12/20 13:28 100 ML Sodium Chloride 10 ml NEEDED PRN IV 12/12/20 13:30 12/12/20 19:03 DC 12/12/20 13:28 10 ML Sodium Chloride 100 ml ONCE ONCE IV 12/12/20 13:30 12/12/20 13:31 DC 12/12/20 13:28 80 ML Vital Signs/I&O 12/12/20 12/12/20 12:04 15:05 Temp 36.1 36.1 Pulse 67 58 Resp 20 14 B/P (MAP) 124/100 (108) 152/89 Pulse Ox 100 100 O2 Delivery Room Air Room Air Capillary Refill : Progress Note #1: Progress Note Check labs as well as urine and CT scan. Provided her bedside test is negative will order toradol, protonix and IVF. If needed can give stronger pain medicine. Differential diagnosis includes cholecystitis, gallbladder attack, gastritis, colitis, diverticulitis Progress Note #2: Progress Note Labs did not show acute significant normality on CBC or chemistry. She has normal lipase. Her urinalysis had some signs for UTI but pt denies symptoms. Will defer antibiotic for urine unless she has positive culture or develops symptoms. CT scan shows no acute significant reason for upper abdominal pain but she has some ovarian cysts. Treat for pain and encourage low fat diet and see pcp about ovarian cysts and further evaluation and possible surgery consult for history of gallstones. If symtpoms worsen, uncontrolled vomiting, fever over 101 F, worsening pain despite medicine then return or seek medical care for eval. Diagnostic Imaging Diagonstic Imaging: CT Plain Films/CT/US/NM/MRI: abdomen, pelvis Comments NAME: MARIANGEL AMOR [facility] REC#: [id number] PT STATUS: REG ER : 1995 PHYSICIAN: HERMES MIJARES MD ADMIT DATE: 12/12/20/ER FS Draft Date of Exam:12/12/20 CT ABDOMEN/PELVIS W PROCEDURE: CT abdomen and pelvis with contrast. TECHNIQUE: Multiple contiguous axial images were obtained through the abdomen and pelvis after administration of intravenous contrast. Auto Exposure Controls were utilized during the CT exam to meet ALARA standards for radiation dose reduction. All CT scans use one or more of the following dose optimizing techniques: automated exposure control, MA and/or KvP adjustment based on patient size and exam type or iterative reconstruction. INDICATION: Right upper quadrant pain, cholelithiasis, nausea, and vomiting. FINDINGS: The lung bases are clear. The liver, gallbladder, and bile ducts appear normal. The spleen, adrenals, and pancreas are unremarkable. There are no opaque kidney stones. There is no hydroureteronephrosis. The aorta is patent and nonaneurysmal. There is no gastric or small or large bowel obstruction. No findings of an ileus. The appendix could never be definitively identified; however, there was no pericecal inflammatory changes to suggest underlying appendicitis. There are no findings of diverticulitis. No focal inflammatory process. A left ovarian follicular cyst measures 2.2 cm, likely physiologic. More posteromedially, a larger adnexal lesion measuring 4.6 x 4.0 cm may be a complex or hemorrhagic cyst. Consider followup with pelvic ultrasound. There are no findings suggestive of adnexal torsion. There is no mesenteric or retroperitoneal adenopathy. The abdominal wall is intact. There is no ascites. IMPRESSION: 1. No bowel, biliary, or urinary tract obstruction. No inflammatory process or opaque stone disease. 2. Likely simple physiologic left ovarian cyst. A second left adnexal lesion may reflect a 4.6 cm complex hemorrhagic cyst, consider pelvic ultrasound. 3. No convincing evidence for an acute abnormality. Dictated on workstation # [id number] Dict: 12/12/20 1332 Trans: 12/12/20 1342 [id number] Interpreted by: SULEIMAN MCMILLAN Electronically signed by: Departure Impression Primary Impression: Upper abdominal pain Additional Impression: Ovarian cyst Qualified Codes: N83.201 - Unspecified ovarian cyst, right side; N83.202 - Unspecified ovarian cyst, left side Disposition: HOME, SELF-CARE Condition: Stable Departure-Patient Inst. Decision time for Depature: 14:49 Referrals: MANDY NIETO MD (PCP/Family) Primary Care Physician Patient Instructions: Abdominal Pain, Adult ED, Gallbladder Diet, Nausea and Vomiting, Adult ED, Ovarian Cyst ED Add. Discharge Instructions: Follow a low fat bland diet to help with abdominal pain and gallbladder disease. Call clinic and arrange for appointment sooner than the end of December to be evaluated for gallbladder and ovarian cysts Take the pain medicine for severe pain. All discharge instructions reviewed with patient and/or family. Voiced understanding. Scripts Hydrocodone/Acetaminophen (Hydrocodone-Acetamin 5-325 mg) 1 Each Tablet 1 TAB PO Q6H PRN for PAIN-SEVERE (8-10) for 5 Days, #20 TAB 0 Refills Prov: HERMES MIJARES MD 12/12/20 Naproxen (Naproxen) 500 Mg Tablet 500 MG PO Q12H PRN for pain for 15 Days, #30 TAB 0 Refills Prov: HERMES MIJARES MD 12/12/20 Ondansetron (Ondansetron Odt) 4 Mg Tab.rapdis 4 MG PO Q6H PRN for NAUSEA/VOMITING for 5 Days, #20 TAB 0 Refills Prov: HERMES MIJARES MD 12/12/20 Work/School Note: Work Release Form Date Seen in the Emergency Department: Dec 12, 2020 Return to Work: Dec 14, 2020 Restrictions: No Restrictions HERMES MIJARES MD Dec 12, 2020 13:13
[2020-12-12 13:14] LABS: LIPASE 18 U/L (8-78)
[2020-12-12] MEDS ORDERED: HOLD METFORMIN - RECEIVED CONTRAST 20 ML VIAL IV SCH (13:30)
[2020-12-12] MEDS ORDERED: CATHETER FLUSH 10 ML SYR IV PRN (13:30)
[2020-12-12] MEDS ORDERED: NS 100 ML (IVPB) BAG IV ONE (13:30)
[2020-12-12] MEDS ORDERED: IOHEXOL 350 MG/ML 100 ML (OMNIPAQUE 350) VIAL IV ONE (13:30)
--- NOTE | 2020-12-12 13:42 | Diagnostic Imaging Report ---
PROCEDURE: CT abdomen and pelvis with contrast. TECHNIQUE: Multiple contiguous axial images were obtained through the abdomen and pelvis after administration of intravenous contrast. Auto Exposure Controls were utilized during the CT exam to meet ALARA standards for radiation dose reduction. All CT scans use one or more of the following dose optimizing techniques: automated exposure control, MA and/or KvP adjustment based on patient size and exam type or iterative reconstruction. INDICATION: Right upper quadrant pain, cholelithiasis, nausea, and vomiting. FINDINGS: The lung bases are clear. The liver, gallbladder, and bile ducts appear normal. The spleen, adrenals, and pancreas are unremarkable. There are no opaque kidney stones. There is no hydroureteronephrosis. The aorta is patent and nonaneurysmal. There is no gastric or small or large bowel obstruction. No findings of an ileus. The appendix could never be definitively identified; however, there was no pericecal inflammatory changes to suggest underlying appendicitis. There are no findings of diverticulitis. No focal inflammatory process. A left ovarian follicular cyst measures 2.2 cm, likely physiologic. More posteromedially, a larger adnexal lesion measuring 4.6 x 4.0 cm may be a complex or hemorrhagic cyst. Consider followup with pelvic ultrasound. There are no findings suggestive of adnexal torsion. There is no mesenteric or retroperitoneal adenopathy. The abdominal wall is intact. There is no ascites. IMPRESSION: 1. No bowel, biliary, or urinary tract obstruction. No inflammatory process or opaque stone disease. 2. Likely simple physiologic left ovarian cyst. A second left adnexal lesion may reflect a 4.6 cm complex hemorrhagic cyst, consider pelvic ultrasound. 3. No convincing evidence for an acute abnormality. Dictated by: Dictated on workstation # [id number]
[2020-12-12] MEDS ORDERED: ACHD5005 PO ×2 (14:46→14:48)
[2020-12-12] MEDS ORDERED: NAPR-915 PO ×2 (14:46→14:48)
[2020-12-12] MEDS ORDERED: ONDA4TAB11 PO ×2 (14:46→14:48)
[2020-12-12 15:05] VITALS: BP 152/89
== END 2020-12-12 15:05 | disposition home or self-care (01) ==
LOC: EDUNIT# 12:00 → ER FS 12:02
DX: R10.10 Upper abdominal pain, unspecified (principal); R11.2 Nausea with vomiting, unspecified; N83.202 Unspecified ovarian cyst, left side; E66.9 Obesity, unspecified; Z68.42 Body mass index [BMI] 45.0-49.9, adult
CPT/HCPCS: 36415; 74177; 80053; 81000; 83690; 84703; 85025; 87088

== ENCOUNTER 2021-03-25 15:28 | Emergency (ER) | payer SELFPAY ==
[~2021-03-25] VITALS: Ht 170.2 cm; Wt 146.5 kg
[~2021-03-25 15:28] MED LIST changes: +ACHD5005 PO; +NAPR-915 PO; +ONDA4TAB11 PO
--- NOTE | 2021-03-25 15:36 | ED Lower Extremity ---
General Stated Complaint: L HEEL PAIN History of Present Illness Date Seen by Provider: Mar 25, 2021 Time Seen by Provider: 15:36 Initial Comments 25-year-old female presents with left heel pain. She reports her pain has been going on for about 3 weeks. She presents today because this can hardly walk on it. Patient has not follow-up with her primary care provider. She is unsure of any injury to the area. She has no other systemic complaints. Allergies and Home Medications Allergies Coded Allergies: Penicillins (Verified Allergy, Unknown, 12/12/20) Patient Home Medication List Home Medication List Reviewed: Yes Hydrocodone/Acetaminophen (Hydrocodone-Acetamin 5-325 mg) 1 Each Tablet, 1 TAB PO Q6H PRN for PAIN-SEVERE (8-10) Prescribed by: HERMES MIJARES on 12/12/20 1449 Naproxen (Naproxen) 500 Mg Tablet, 500 MG PO Q12H PRN for pain Prescribed by: HERMES MIJARES on 12/12/20 1448 Ondansetron (Ondansetron Odt) 4 Mg Tab.rapdis, 4 MG PO Q6H PRN for NAUSEA/VOMITING Prescribed by: HERMES MIJARES on 12/12/20 1448 Review of Systems Constitutional: No chills, No fever Respiratory: no symptoms reported Cardiovascular: no symptoms reported Gastrointestinal: no symptoms reported Genitourinary: no symptoms reported Musculoskeletal: see HPI Skin: no symptoms reported Psychiatric/Neurological: No Symptoms Reported Past Omuhkrc-Onqojn-Kaekhw Hx Immunizations Up To Date Tetanus Booster (TDap): Unknown PED Vaccines UTD: Yes Seasonal Allergies Seasonal Allergies: Yes Past Medical History Surgeries: No Respiratory: No Cardiac: No Neurological: No Gastrointestinal: No Family Medical History No Pertinent Family Hx Physical Exam Vital Signs Capillary Refill : Height, Weight, BMI Height: 5'7.00" Weight: 300lbs. oz. 136.807893zx; 59.00 BMI Method:Stated General Appearance: WD/WN, no apparent distress, obese Neck: full range of motion Cardiovascular: normal peripheral pulses, regular rate, rhythm Respiratory: lungs clear, normal breath sounds, no respiratory distress Gastrointestinal: non tender, soft Ankles: bilateral ankle non-tender Feet: left foot other (Pain in posterior heel area to palpation, no swelling or abnormal color change) Progress/Results/Core Measures Results/Orders My Orders Orders - ARNIE DUNNE DO Foot 3 View Left (03/25/21 15:38) Progress Progress Note : Progress Note Patient with no acute finding on x-ray. Discussed with patient that is either bruise versus some plantar fasciitis. She should use anti-inflammatories along with stretching and ice. Patient stable and discharged patient should follow-up with her primary care provider if her symptoms continue over the next week or so. Diagnostic Imaging Diagonstic Imaging: Xray Plain Films/CT/US/NM/MRI: other Comments Date of Exam:03/25/21 FOOT 3 VIEW LEFT INDICATION: Left heel pain. FINDINGS: Three views of the left foot show no fracture, dislocation, or other acute abnormalities. IMPRESSION: Negative left foot. Departure Impression Primary Impression: Plantar fasciitis Disposition: HOME, SELF-CARE Condition: Stable Departure-Patient Inst. Referrals: MANDY NIETO MD (PCP/Family) Primary Care Physician Patient Instructions: Contusion (DC), Heel Pain Caused by Plantar Fasciitis (DC), Plantar Fasciitis Exercises Add. Discharge Instructions: Follow-up with your primary care provider in 1 week if symptoms or not improving Scripts Naproxen (Naprosyn) 500 Mg Tablet 500 MG PO BID, #30 TAB 0 Refills Prov: ARNIE DUNNE DO 03/25/21 Work/School Note: Work Release Form Date Seen in the Emergency Department: Mar 25, 2021 Return to Work: Mar 26, 2021 ARNIE DUNNE DO Mar 25, 2021 15:36
--- NOTE | 2021-03-25 15:58 | Diagnostic Imaging Report ---
INDICATION: Left heel pain. FINDINGS: Three views of the left foot show no fracture, dislocation, or other acute abnormalities. IMPRESSION: Negative left foot. Dictated by: Dictated on workstation # [id number]
[2021-03-25] MEDS ORDERED: NAPR-1071 PO (16:10)
[2021-03-25 16:13] VITALS: BP 123/90
== END 2021-03-25 16:13 | disposition home or self-care (01) ==
LOC: EDUNIT# 15:28 → ER FS 15:30
DX: M72.2 Plantar fascial fibromatosis (principal); E66.9 Obesity, unspecified; Z68.43 Body mass index [BMI] 50.0-59.9, adult
CPT/HCPCS: 73630

== ENCOUNTER 2021-11-12 09:22 | Emergency (ER) | payer SELFPAY ==
[~2021-11-12 09:22] MED LIST changes: +CYCL10TA25 PO; -CYCL10TA9 PO; +NAPR-1071 PO
--- NOTE | 2021-11-12 09:34 | ED GU-Female ---
General Chief Complaint: - Reproductive Stated Complaint: SUPRAPUBIC PAIN, VOMITING History of Present Illness Date Seen by Provider: Nov 12, 2021 Time Seen by Provider: 09:34 Initial Comments 26-year-old female presents with pelvic/suprapubic pain and vomiting. Patient reports that she started her menstrual period 4 days ago and has been heavier and more painful than normal. She reports that she has been having hard time keeping anything down. Patient reports that 3 days ago her primary care prov ider started her on control pill to help with the menstrual pain. Patient denies any hypertension to be as she is still a virgin. She denies any fever, chills, shortness of breath,, cough or other systemic complaints Allergies and Home Medications Allergies Coded Allergies: Penicillins (Verified Allergy, Unknown, 12/12/20) Patient Home Medication List Home Medication List Reviewed: Yes Hydrocodone/Acetaminophen (Hydrocodone-Acetamin 5-325 mg) 1 Each Tablet, 1 TAB PO Q6H PRN for PAIN-SEVERE (8-10) Prescribed by: HERMES MIJARES on 12/12/20 1449 Naproxen (Naproxen) 500 Mg Tablet, 500 MG PO Q12H PRN for pain Prescribed by: HERMES MIJARES on 12/12/20 1448 Naproxen (Naprosyn) 500 Mg Tablet, 500 MG PO BID Prescribed by: ARNIE DUNNE on 03/25/21 1610 Ondansetron (Ondansetron Odt) 4 Mg Tab.rapdis, 4 MG PO Q6H PRN for NAUSEA/VOMITING Prescribed by: HERMES MIJARES on 12/12/20 1448 Review of Systems Review of Systems Constitutional: No chills, No fever EENTM: no symptoms reported Respiratory: no symptoms reported Gastrointestinal: see HPI, nausea, vomiting Genitourinary: see HPI : No Musculoskeletal: no symptoms reported Skin: no symptoms reported Psychiatric/Neurological: No Symptoms Reported Endocrine: No Symptoms Reported Past Kbdtbuk-Jvvtiu-Nfnvdr Hx Immunizations Up To Date Tetanus Booster (TDap): Unknown PED Vaccines UTD: Yes Seasonal Allergies Seasonal Allergies: Yes Past Medical History Surgeries: No Respiratory: No Cardiac: No Neurological: No Gastrointestinal: No Family Medical History No Pertinent Family Hx Physical Exam Vital Signs Vital Signs - First Documented 11/12/21 09:35 Temp 35.4 Pulse 85 Resp 16 B/P (MAP) 146/65 (92) Pulse Ox 99 O2 Delivery Room Air Capillary Refill : Height, Weight, BMI Height: 5'7.00" Weight: 300lbs. oz. [id number]; 50.00 BMI Method:Stated General Appearance: WD/WN, no apparent distress, obese HEENT: PERRL/EOMI Neck: full range of motion Cardiovascular: normal peripheral pulses, regular rate, rhythm Respiratory: lungs clear, normal breath sounds Gastrointestinal: soft; No distended, No guarding, No rebound; tenderness (Minor suprapubic) Extremities: non-tender, normal inspection Neurologic/Psychiatric: no motor/sensory deficits, alert, normal mood/affect, oriented x 3 Skin: normal color, warm/dry Progress/Results/Core Measures Suspected Sepsis SIRS Temperature: Pulse: Respiratory Rate: Laboratory Tests 11/12/21 09:50: White Blood Count 10.7 Blood Pressure / Mean: Laboratory Tests 11/12/21 09:50: Creatinine 0.88, Platelet Count 248, Total Bilirubin 0.6 Results/Orders Lab Results Laboratory Tests Test 11/12/21 09:34 11/12/21 09:50 Range/Units Urine Color RED H Urine Clarity CLOUDY Urine pH 6.0 5-9 Urine Specific [place] 1.025 H 1.016-1.022 Urine Protein 2+ H NEGATIVE Urine Glucose (UA) NEGATIVE NEGATIVE Urine Ketones 2+ H NEGATIVE Urine Nitrite NEGATIVE NEGATIVE Urine Bilirubin 2+ H NEGATIVE Urine Urobilinogen 4.0 < = 1.0 MG/DL Urine Leukocyte Esterase TRACE H NEGATIVE Urine RBC (Auto) 3+ H NEGATIVE Urine RBC >100 H /HPF Urine WBC 2-5 /HPF Urine Squamous Epithelial Cells 2-5 /HPF Urine Crystals NONE /LPF Urine Bacteria FEW H /HPF Urine Casts NONE /LPF Urine Mucus SMALL H /LPF Urine Culture Indicated NO White Blood Count 10.7 4.3-11.0 10^3/uL Red Blood Count 3.79 L 3.80-5.11 10^6/uL Hemoglobin 10.8 L 11.5-16.0 g/dL Hematocrit 32 L 35-52 % Mean Corpuscular Volume 85 80-99 fL Mean Corpuscular Hemoglobin 29 25-34 pg Mean Corpuscular Hemoglobin Concent 34 32-36 g/dL Red Cell Distribution Width 12.5 10.0-14.5 % Platelet Count 248 130-400 10^3/uL Mean Platelet Volume 11.0 9.0-12.2 fL Immature Granulocyte % (Auto) 0 % Neutrophils (%) (Auto) 75 42-75 % Lymphocytes (%) (Auto) 17 12-44 % Monocytes (%) (Auto) 7 0-12 % Eosinophils (%) (Auto) 1 0-10 % Basophils (%) (Auto) 0 0-10 % Neutrophils # (Auto) 8.0 H 1.8-7.8 10^3/uL Lymphocytes # (Auto) 1.8 1.0-4.0 10^3/uL Monocytes # (Auto) 0.8 0.0-1.0 10^3/uL Eosinophils # (Auto) 0.1 0.0-0.3 10^3/uL Basophils # (Auto) 0.0 0.0-0.1 10^3/uL Immature Granulocyte # (Auto) 0.0 0.0-0.1 10^3/uL Sodium Level 137 135-145 MMOL/L Potassium Level 3.3 L 3.6-5.0 MMOL/L Chloride Level 100 98-107 MMOL/L Carbon Dioxide Level 24 21-32 MMOL/L Anion Gap 13 5-14 MMOL/L Blood Urea Nitrogen 8 7-18 MG/DL Creatinine 0.88 0.60-1.30 MG/DL Estimat Glomerular Filtration Rate 92 BUN/Creatinine Ratio 9 Glucose Level 106 H 70-105 MG/DL Calcium Level 9.4 8.5-10.1 MG/DL Corrected Calcium 8.5-10.1 MG/DL Total Bilirubin 0.6 0.1-1.0 MG/DL Aspartate Amino Transf (AST/SGOT) 23 5-34 U/L Alanine Aminotransferase (ALT/SGPT) 28 0-55 U/L Alkaline Phosphatase 65 40-136 U/L Total Protein 8.1 6.4-8.2 GM/DL Albumin 4.6 H 3.2-4.5 GM/DL Lipase 13 8-78 U/L My Orders Orders - DUNNE,ARNIE L DO Cbc With Automated Diff (11/12/21 09:37) Comprehensive Metabolic Panel (11/12/21 09:37) Lipase (11/12/21 09:37) Ondansetron Injection (Zofran Injectio (11/12/21 09:45) Ns Iv 1000 Ml (Sodium Chloride 0.9%) (11/12/21 09:37) Ed Iv/Invasive Line Start (11/12/21 09:37) Ketorolac Injection (Toradol Injection) (11/12/21 09:37) Ua Culture If Indicated (11/12/21 09:41) Medications Given in ED Current Medications Medications Dose Ordered Sig/Olivier Route Start Time Stop Time Status Last Admin Dose Admin Ondansetron HCl 4 mg ONCE ONCE IVP 11/12/21 09:45 11/12/21 09:46 DC 11/12/21 09:50 4 MG Vital Signs/I&O 11/12/21 09:35 Temp 35.4 Pulse 85 Resp 16 B/P (MAP) 146/65 (92) Pulse Ox 99 O2 Delivery Room Air Capillary Refill : Progress Note : Progress Note Patient is feeling better following IV fluids and Zofran. Patient is urine is difficult to discern whether just contaminant from menstrual flow or if she has a urinary tract infection since she has both bacteria leukocyte Estrace and nitrites with no epithelial cells. I will treat her with 3 days of Bactrim, Zofran. She should follow-up with her primary care provider as needed. Departure Impression Primary Impression: Urinary tract infection Qualified Codes: N30.01 - Acute cystitis with hematuria Additional Impression: Painful menstruation Disposition: HOME, SELF-CARE Condition: Stable Departure-Patient Inst. Referrals: MANDY NIETO MD (PCP) Primary Care Physician Patient Instructions: Menstrual Cramps (DC), Urinary Tract Infection, Adult (DC) Add. Discharge Instructions: Follow-up with your primary care provider if symptoms or not improving over the next couple days All discharge instructions reviewed with patient and/or family. Voiced understanding. Scripts Ondansetron (Ondansetron Odt) 4 Mg Tab.rapdis 4 MG PO Q6H PRN for NAUSEA/VOMITING, #20 TAB 0 Refills Prov: ARNIE DUNNE DO 11/12/21 Sulfamethoxazole/Trimethoprim (Bactrim Ds Tablet) 1 Each Tablet 1 EACH PO BID for 3 Days, #6 TAB Prov: DUNNE,ARNIE L DO 11/12/21 AURE DUNNER L DO Nov 12, 2021 09:34
[2021-11-12] MEDS ORDERED: KETOROLAC 30 MG/ML VIAL IVP STA (09:37)
[2021-11-12] MEDS ORDERED: NS IV 1000 ML 1,000 ML IV STA (09:37)
[2021-11-12] MEDS ORDERED: ONDANSETRON 4 MG/2 ML (SDV) Z0FRAN IVP ONE (09:45)
[2021-11-12 10:00] LABS: CLARITY,URINE CLOUDY; COLOR,URINE RED; GLUCOSE, URINE (UA) NEGATIVE (NEGATIVE); KETONES,URINE 2+ (NEGATIVE); LEUKOCYTE ESTERASE ,URINE TRACE (NEGATIVE); NITRITE,URINE NEGATIVE (NEGATIVE); PROTEIN,URINE 2+ (NEGATIVE)
[2021-11-12 10:08] LABS: BASOPHILS % (AUTO) 0 % (0-10); EOSINOPHILS # (AUTO) 0.1 10^3/uL (0.0-0.3); EOSINOPHILS % (AUTO) 1 % (0-10); HEMATOCRIT 32 % (35-52); HEMOGLOBIN 10.8 g/dL (11.5-16.0); LYMPHOCYTES # (AUTO) 1.8 10^3/uL (1.0-4.0); LYMPHOCYTES % (AUTO) 17 % (12-44); MEAN CORPUSCULAR HEMOGLOBIN 29 pg (25-34); MEAN CORPUSCULAR HGB CONC 34 g/dL (32-36); MEAN CORPUSCULAR VOLUME 85 fL (80-99); MONOCYTES # (AUTO) 0.8 10^3/uL (0.0-1.0); MONOCYTES % (AUTO) 7 % (0-12); NEUTROPHILS % (AUTO) 75 % (42-75); PLATELET COUNT 248 10^3/uL (130-400); WHITE BLOOD COUNT 10.7 10^3/uL (4.3-11.0)
[2021-11-12 10:21] LABS: BACTERIA,URINE FEW /HPF; BILIRUBIN,URINE 2+ (NEGATIVE); RBC,URINE >100 /HPF
[2021-11-12 10:23] LABS: LIPASE 13 U/L (8-78)
[2021-11-12 10:47] LABS: SODIUM 137 MMOL/L (135-145)
[2021-11-12 10:48] LABS: ALANINE AMINOTRANSFERASE 28 U/L (0-55); ALBUMIN 4.6 GM/DL (3.2-4.5); ALKALINE PHOSPHATASE 65 U/L (40-136); BILIRUBIN,TOTAL 0.6 MG/DL (0.1-1.0); BUN/CREATININE RATIO 9; CALCIUM 9.4 MG/DL (8.5-10.1); CARBON DIOXIDE 24 MMOL/L (21-32); CHLORIDE 100 MMOL/L (98-107); CREATININE SERUM 0.88 MG/DL (0.60-1.30); GFR ESTIMATED 92; GLUCOSE 106 MG/DL (70-105); POTASSIUM 3.3 MMOL/L (3.6-5.0); TOTAL PROTEIN 8.1 GM/DL (6.4-8.2)
[2021-11-12] MEDS ORDERED: SULF1TAB38 PO (10:54)
[2021-11-12] MEDS ORDERED: ONDA4TAB11 PO (10:54)
[2021-11-12 11:02] VITALS: BP 146/65
== END 2021-11-12 11:02 | disposition home or self-care (01) ==
LOC: EDUNIT# 09:22 → ER FS 09:27
DX: N39.0 Urinary tract infection, site not specified (principal); N94.6 Dysmenorrhea, unspecified
CPT/HCPCS: 36415; 80053; 81000; 83690; 85025

== ENCOUNTER 2022-10-27 20:09 | Emergency (ER) | payer SELFPAY ==
[~2022-10-27] VITALS: Ht 165.1 cm; Wt 129.3 kg
[~2022-10-27 20:09] MED LIST changes: +SULF1TAB38 PO
[2022-10-27 20:13] VITALS: BP 148/101
--- NOTE | 2022-10-27 20:14 | ED Upper Extremity ---
General Stated Complaint: R INDEX FINGER LAC History of Present Illness Date Seen by Provider: Oct 27, 2022 Time Seen by Provider: 20:13 Initial Comments 27-year-old female is here with complaints of right second fingertip and fourth fingertip laceration, which occurred while she was washing dishes today and cut it on a piece of broken glass. Patient states that it bled a lot at the time of the cut. In the ER the bleeding has stopped. Denies sensory loss. Allergies and Home Medications Allergies Coded Allergies: Penicillins (Verified Allergy, Unknown, 12/12/20) Patient Home Medication List Home Medication List Reviewed: Yes Hydrocodone/Acetaminophen (Hydrocodone-Acetamin 5-325 mg) 1 Each Tablet, 1 TAB PO Q6H PRN for PAIN-SEVERE (8-10) Prescribed by: HERMES MIJARES on 12/12/20 1449 Naproxen (Naproxen) 500 Mg Tablet, 500 MG PO Q12H PRN for pain Prescribed by: HERMES MIJARES on 12/12/20 1448 Naproxen (Naprosyn) 500 Mg Tablet, 500 MG PO BID Prescribed by: ARNIE DNUNE on 03/25/21 1610 Ondansetron (Ondansetron Odt) 4 Mg Tab.rapdis, 4 MG PO Q6H PRN for NAUSEA/VOMITING Prescribed by: HERMES MIJARES on 12/12/20 1448 Ondansetron (Ondansetron Odt) 4 Mg Tab.rapdis, 4 MG PO Q6H PRN for NAUSEA/VOMITING Prescribed by: ARNIE DUNNE on 11/12/21 1054 Sulfamethoxazole/Trimethoprim (Bactrim Ds Tablet) 1 Each Tablet, 1 EACH PO BID Prescribed by: ARNIE DUNNE on 11/12/21 1054 Review of Systems Constitutional: no symptoms reported EENTM: no symptoms reported Respiratory: no symptoms reported Cardiovascular: no symptoms reported Gastrointestinal: no symptoms reported Genitourinary: no symptoms reported Musculoskeletal: no symptoms reported Skin: other (Laceration) Psychiatric/Neurological: No Symptoms Reported Past Vaidksv-Xlftqv-Qvuvll Hx Immunizations Up To Date Tetanus Booster (TDap): Unknown PED Vaccines UTD: Yes Seasonal Allergies Seasonal Allergies: Yes Past Medical History Surgery/Hospitalization HX: HTN; Anemia Surgeries: No Respiratory: No Cardiac: No Neurological: No Gastrointestinal: No Family Medical History No Pertinent Family Hx Physical Exam Vital Signs Vital Signs - First Documented 10/27/22 20:13 Temp 36.3 Pulse 78 Resp 20 B/P (MAP) 148/101 (117) Pulse Ox 100 O2 Delivery Room Air Capillary Refill : Height, Weight, BMI Height: 5'7.00" Weight: 300lbs. oz. 136.251492sr; 50.00 BMI Method:Stated General Appearance: WD/WN, no apparent distress HEENT: PERRL/EOMI Neck: full range of motion Hand: non-tender, normal ROM, Right, laceration (Superficial laceration to rig ht second finger tip which is 0.25 mm in length, and fourth fingertip, which is 0.15 mm in length. Both are very superficial and only include the dermis. No active bleeding. Clean wounds. No foreign body seen. N/V bundle intact. Range of movement unrestricted.) Neurologic/Tendon: normal sensation, normal motor functions, normal tendon functions Neurologic/Psychiatric: no motor/sensory deficits, alert, oriented x 3 Progress/Results/Core Measures Results/Orders Vital Signs/I&O 10/27/22 20:13 Temp 36.3 Pulse 78 Resp 20 B/P (MAP) 148/101 (117) Pulse Ox 100 O2 Delivery Room Air Progress Progress Note : Progress Note 1. Fingertip lacerations of right second fingertip and right fourth fingertip: -Dermabond application to both lacerations. Good apposition. -Wound instructions given -Follow-up with PCP as needed Departure Impression Primary Impression: Laceration of finger of right hand Disposition: HOME, SELF-CARE Condition: Improved Departure-Patient Inst. Referrals: MANDY NIETO MD (PCP/Family) Primary Care Physician Patient Instructions: Skin glue for minor cuts, Wound Care, Laceration Repair With Glue ED Add. Discharge Instructions: -Wound instructions given -Follow-up with PCP as needed GRICELDA SCHWARTZ MD Oct 27, 2022 20:14
== END 2022-10-27 20:55 | disposition home or self-care (01) ==
LOC: EDUNIT# 20:09 → ER FS 20:10
DX: S61.210A Laceration without foreign body of right index finger without damage to nail, initial encounter (principal); S61.214A Laceration without foreign body of right ring finger without damage to nail, initial encounter; W25.XXXA Contact with sharp glass, initial encounter